=== PATIENT | female | born 1995 | race Caucasian/White ===

== ENCOUNTER → 2020-07-20 | Outpatient (CLI) | payer OTHER ==
--- NOTE | 2020-07-20 10:51 | MR ---
EXAMINATION TYPE: MR knee RT wo con DATE OF EXAM: 07/20/2020 COMPARISON: None HISTORY: Right knee pain TECHNIQUE: Multiplanar, multisequence imaging of the right knee is performed without IV contrast. FINDINGS: MEDIAL MENISCUS: Grade 3 abnormal signal involving the posterior horn medial meniscus compatible with a linear tear. LATERAL MENISCUS: Linear signal anterior horn lateral meniscus with no definite intra-articular exten moiz. Correlate for mucoid degeneration. CRUCIATE LIGAMENTS: The anterior and posterior cruciate ligaments are intact and unremarkable. COLLATERAL LIGAMENTS: The medial collateral ligament and lateral collateral ligament complex are inta ct and unremarkable. EXTENSOR MECHANISM: Visualized quadriceps and patellar tendons are intact. EFFUSION: No significant suprapatellar joint effusion. POPLITEAL CYST: No popliteal/pandya cyst. TRICOMPARTMENT SPACES: Joint spaces preserved. No erosive changes. CARTILAGE: Cartilage preserved BONE MARROW SIGNAL: No focal abnormal marrow signal is appreciated. IMPRESSION: 1. Linear tear posterior horn medial meniscus. 2. Linear signal without articular extension anterior horn lateral meniscus. Mucoid degeneration favo red over tear. 3. No evidence of ligamentous injury.
== END | disposition home or self-care (01) ==
LOC: RADMRIMAIN 09:30
PROVIDERS: ATTEND Orthopaedic Surgery Sports Medicine
DX: S83.241A Other tear of medial meniscus, current injury, right knee, initial encounter (principal); M17.11 Unilateral primary osteoarthritis, right knee

== ENCOUNTER → 2020-09-08 | Outpatient (CLI) | payer OTHER ==
[2020-09-08 21:23] LABS: HCT 42.8 % (37.2-46.3); HGB 13.8 g/dL (12.0-15.0); MCH 28.9 pg (27.0-32.0); MCHC 32.2 g/dL (32.0-37.0); MCV 89.5 fL (80.0-97.0); Mean Platelet Volume 9.6 fL (9.5-12.2); Platelet Count 355 X 10*3/uL (140-440); RBC 4.78 X 10*6/uL (4.10-5.20); RDW 12.1 % (11.5-14.5); WBC 6.37 X 10*3/uL (4.50-10.00)
[2020-09-09 06:01] LABS: EBV-EA (IgG) <0.2 AI; EBV-EBNA(IgG) >8.0 AI; EBV-VCA (IgG) 5.1 AI; EBV-VCA (IgM) 1.5 AI
[2020-09-09 08:57] LABS: Thyroid Peroxidase Antibodies <28.0 U/mL (0.0-60.0)
[2020-09-09 08:59] LABS: African American GFR (CKD) 117.9 (60.0-200.0); Albumin 4.7 g/dL (3.80-4.90); Albumin/Globulin Ratio 2.24 (1.60-3.17); Anion Gap 11.1 mmol/L (4.00-12.00); BUN/Creat Ratio 21.25 Ratio (12.00-20.00); Calcium 9.3 mg/dL (8.7-10.3); Carbon Dioxide 22.9 mmol/L (21.6-31.8); Globulin 2.1 g/dL (1.6-3.3); Non-African American GFR(CKD) 101.8 (60.0-200.0); Potassium 4.9 mmol/L (3.5-5.5); Total Bilirubin 0.3 mg/dL (0.2-1.2); Total Protein 6.8 g/dL (6.2-8.2)
[2020-09-09 09:07] LABS: Prolactin 6.1 ng/mL (2.8-29.2); T4, Free (Free Thyroxine) 1.2 ng/dL (0.80-1.80)
== END | disposition home or self-care (01) ==
LOC: LABWHC1 10:08
PROVIDERS: ATTEND Internal Medicine Endocrinology, Diabetes & Metabolism
DX: E04.1 Nontoxic single thyroid nodule (principal); R53.82 Chronic fatigue, unspecified
CPT/HCPCS: 36415; 80053; 82024; 82533; 82607; 84146; 84439; 84443; 84481; 85027; 86376; 86644; 86645; 86663; 86664; 86665; 86800

== ENCOUNTER 2020-10-20 08:13 | Day surgery (SDC) | payer OTHER ==
[2020-10-18 11:12] VITALS: BMI 36.6
[~2020-10-20 08:13] MED LIST: LACTATED RINGERS 1,000 ML IV SCH; LIDOCAINE 1% (10MG/ML) FOR IV START INTRADERMA PRN
[2020-10-20 08:50] VITALS: RESP 16; TEMP 98.5
[2020-10-20] MEDS ORDERED: LIDOCAINE 1% INJ 10MG/ML (20 ML MDV) ONE (09:07)
[2020-10-20] MEDS ORDERED: MIDAZOLAM 2 MG/2 ML VIAL ONE (09:07)
[2020-10-20] MEDS ORDERED: PROPOFOL 10 MG/ML 50 ML VIAL IV ONE (09:07)
--- NOTE | 2020-10-20 09:25 | P.PCN ---
Date of Procedure: 10/20/20 Description of Procedure: BRIEF HISTORY: Patient is a 25-year-old female presenting for unspecified abdominal pain and evaluation with esophagogastroduodenoscopy. She reports chest and abdominal pain previously worked up by cardiology with no abnormalities found. Plan is for EGD for further evaluation. PROCEDURE PERFORMED: Esophagogastroduodenoscopy with biopsy. PREOPERATIVE DIAGNOSIS: Unspecified abdominal pain, chest pain. ESTIMATED BLOOD LOSS: Minimal. IV sedation per anesthesia. PROCEDURE: After informed consent was obtained, the patient was brought into the endoscopy unit. IV sedation was administered by Anesthesia under continuous monitoring. Initially the Olympus GIF-190 video endoscope was inserted into the mouth. Esophagus intubated without any difficulty. It was gradually advanced into the stomach and duodenum and carefully examined. The bulb and the second part of the duodenum appeared normal, with biopsies taken. The scope at this time was withdrawn to the stomach, adequately insufflated with air, and upon careful examination, mucosa of the antrum, body, cardia and the fundus appeared normal, with biopsies taken. The scope was then withdrawn into the esophagus. The GE junction was located at 37 cm from the incisors, with biopsies taken. The esophagus appeared normal. There were no erosions or ulcerations seen and the patient tolerated the procedure well. IMPRESSION: 1. Normal-appearing esophagus, stomach and small bowel. 2. Biopsies of the duodenum, antrum and body and GE junction. RECOMMENDATIONS: The findings of this examination were discussed with the patient and her family. Okay to resume diet. Okay to resume medications. Await pathology from biopsies. Follow up in the PCP office as previously scheduled
[2020-10-20 09:37] VITALS: BP 110/70; PULSE 71
== END 2020-10-20 09:53 | disposition home or self-care (01) ==
LOC: ORWHC2ENDO 08:13
PROVIDERS: ATTEND Internal Medicine
DX: K29.50 Unspecified chronic gastritis without bleeding (principal); Z79.899 Other long term (current) drug therapy; E78.5 Hyperlipidemia, unspecified; J45.990 Exercise induced bronchospasm; F41.9 Anxiety disorder, unspecified; K21.9 Gastro-esophageal reflux disease without esophagitis
CPT/HCPCS: 81025; 88305; 43239; J2250; J2001; J2704